=== PATIENT | female | born 1960 | race Caucasian/White ===

== ENCOUNTER → 2021-11-02 19:51 | Outpatient (CLI) | payer BC, SELFPAY ==
--- NOTE | 2021-11-07 16:17 | WPDSLEEPSTUD ---
Sleep Study Date of Study: 11/02/21 Ordering Provider: Derrek Bowens MD Interpreting Physician: Naya Aguillon MD Sleep Study Type: Split Polysomnogram Height: 1.59 m Weight: 136.985 kg Body Mass Index: 54.3 Neck Circumference (inches): 18 Fords: 11 Reason for Sleep Study Long history of obstructive sleep apnea, on CPAP 19 years with the same machine, increased symptoms Sleep History Aracely Piper is a 61 year old female with A history of obstructive sleep apnea on CPAP for the last 19 years. She is using the same machine. She now feels tired on waking and occasionally has headaches in the morning. She has difficulty falling asleep, she wakes up throughout the night and she is excessively sleepy in the daytime. She frequently awakens from sleep feeling short of breath. She occasionally awakens at night with heartburn, belching or coughing. She constantly snores loudly. She constantly has trouble sleep with a cold. She rarely wakes up gasping for breath at night. She occasionally has breathing problems at night observed by others. She frequently sweats excessively at night. She occasionally notices her heart pounding or beating irregularly at night. She rarely falls asleep during the day, rarely falls asleep involuntarily, never falls asleep while driving. She rarely has loss of muscle tone was strong emotion. She rarely has daytime difficulties due to excessive sleepiness. She does not feel paralyzed on waking or falling asleep and does not have vivid dreamlike scenes upon awakening falling asleep. She never feels afraid to go to sleep. She denies having nightmares. She occasionally remembers her dreams. She occasionally has racing thoughts. She rarely feels sad or depressed. She occasionally has anxiety, occasionally has muscular tension. She frequently notices parts of her body jerking. She frequently kicks at night. She occasionally has crawling and aching feelings in her legs. She frequently has leg pain at night. She occasionally has morning jaw pain. She occasionally grinds her teeth at night. She occasionally has bothered by pain during the day and occasionally awakened by pain at night. She constantly wakes up feeling stiff the morning with sore achy muscles. She frequently wakes up with pain in the neck and spine. She has memory problems, concentration difficulties, headaches palpitations fatigue and occasionally feels depressed. Normal bedtime is 8:00 p.m. falling asleep within 30 minutes typically waking once at night to be moved to the recliner and sometimes she will watch television. On average she stays awake 2 hours when she awakens during the night. She wakes the morning at 5:00 a.m.. Her weekend schedule is the same. She does not take naps in the afternoon or evening. A short nap 10 or 15 minutes long this sometimes refreshing. She feels better in the morning compared to other times of day. Habits: never smoked tobacco. Caffeine 3 glasses of tea per day. Rare alcohol use. No recreational drug use [facility] Past Medical History Medical History (Updated 11/07/21 @ 16:51 by Naya Aguillon MD) Asthma Fibromyalgia Heartburn Hypertension Kidney stones Obstructive sleep apnea Prediabetes Surgical History Surgical History (Updated 11/07/21 @ 16:50 by Naya Aguillon MD) History of cholecystectomy History of mandibular surgery 1994 orthognathic History of thyroidectomy Previous section x 3 Family History Family History (Updated 10/13/14 @ 09:12 by DOCTOR UNKNOWN) Mother Family history of chronic obstructive pulmonary disease Father Family history of pancreatic cancer Other Cerebrovascular accident Diabetes mellitus Family history of allergic disorder Hypertension Social History Social History Smoking status: Never smoker Alcohol intake: current Medications Medications: vitamin D3 a 1000 units daily multivitamin 1 daily [employer]
[2021-11-07 17:08] VITALS: BMI 54.3
== END ==
PROVIDERS: PCP Internal Medicine; Visit Provider Internal Medicine
DX: G47.33 Obstructive sleep apnea (adult) (pediatric) (principal)
CPT/HCPCS: 95811

== ENCOUNTER 2022-05-01 09:20 | Emergency (ER) | payer BC, SELFPAY ==
[2022-05-01 09:20] VITALS: BP 133/64; PULSE 76; RESP 18; TEMP 36.2; O2SAT 97
[2022-05-01 09:30] VITALS: BP 129/69; PULSE 76; RESP 16; O2SAT 96
--- NOTE | 2022-05-01 09:46 | ED.ALLEREA ---
HPI - Allergic Reaction General Chief complaint: Allergic Reaction Stated complaint: bee sting Time Seen by Provider: 05/01/22 09:46 Source: patient Mode of arrival: ambulatory History of Present Illness HPI narrative: 61-year-old female with a history of hypertension, fibromyalgia, obstructive sleep apnea on CPAP, pre diabetes presents to the ER after being stung by a bee 45 minutes ago. She has 2 sting dumas on the left arm and her left lateral thigh. No itching or no pain on the bite sites. The patient does not have any shortness of breath, throat swelling or tongue swelling. The patient complains of local swelling and redness around the sting site. She had a prior history of anaphylaxis to bee sting many years ago. Onset (ago): minute(s) ( 45 minutes ago) Exposure: insect bite Known history of allergy to: History of anaphylaxis to bee sting 20 years ago Severity: mild Treatment prior to arrival: none Previous Allergic Reaction History: none Related Data Allergies Allergy/AdvReac Type Severity Reaction Status Date / Time No Known Allergies Allergy Verified 05/01/22 09:38 Review of Systems Review of Systems: All systems reviewed & are unremarkable except as noted in HPI and below Constitutional: Constitutional: Reports as per HPI and Reports no additional constitutional complaints Eyes: Eyes: Reports as per HPI and Reports no additional eye complaints ENT: Reports system reviewed and no additional complaints, except as documented and Reports as per HPI Cardiovascular: Cardiovascular: Reports as per HPI and Reports no additional cardiovascular complaints Respiratory: Respiratory: Reports as per HPI and Reports no additional respiratory complaints Gastrointestinal: Gastrointestinal: Reports as per HPI and Reports no additional gastrointestinal complaints Genitourinary: Genitourinary: Reports no additional female genitourinary complaints and Reports as per HPI Musculoskeletal: Musculoskeletal: Reports no additional musculoskeletal complaints and Reports as per HPI Integumentary/Breasts: Skin/Breast: Reports system reviewed and no additional complaints, except as docu and Reports as per HPI Comments: redness and swelling around the bite site Neurologic: Reports system reviewed and no additional complaints, except as documented and Reports as per HPI Psychiatric: Psychiatric: Reports no additional psychiatric complaints and Reports as per HPI Endocrine: Endocrine: Reports no additional endocrine complaints and Reports as per HPI Hematologic/Lymphatic: Hematologic/Lymphatic: Reports no additional hematologic/lymphatic complaints and Reports as per HPI Allergic/Immunologic: Allergic/Immunologic: Reports no additional allergic/immunologic complaints and Reports as per HPI PMFSH Past Medical History Medical History Asthma Fibromyalgia Heartburn Hypertension Kidney stones Obstructive sleep apnea Prediabetes Surgical History Surgical History History of cholecystectomy History of mandibular surgery 1994 orthognathic History of thyroidectomy Previous section x 3 Family History Family History Mother Family history of chronic obstructive pulmonary disease Father Family history of pancreatic cancer Other Cerebrovascular accident Diabetes mellitus Family history of allergic disorder Hypertension Social History Social History Smoking status: Never smoker Alcohol intake: current Exam Const: General: healthy appearing and no acute distress Nutritional Appearance: well nourished Orientation/consciousness: patient oriented x3 Limitations: no limitations HENMT: Head: normal to inspection Ears: external ears normal, TM's normal bilaterally ( b/l tympanic
[2022-05-01 09:50] VITALS: BP 134/71; PULSE 69; RESP 16; O2SAT 96
[2022-05-01] MEDS: methylPREDNISolone SOD SUCC 125 MG VIAL 40 MG IM (10:09)
[2022-05-01 10:10] VITALS: BP 124/70; PULSE 68; RESP 16; TEMP 36.7; O2SAT 97
[2022-05-01 10:14] VITALS: BP 123/70; PULSE 73; RESP 16; O2SAT 96
== END 2022-05-01 10:17 | disposition home or self-care (01) ==
PROVIDERS: Emergency Provider Internal Medicine Critical Care Medicine; PCP Internal Medicine
DX: T63.441A Toxic effect of venom of bees, accidental (unintentional), initial encounter (principal)
CPT/HCPCS: 96372; 99283; J2930

== ENCOUNTER 2022-08-21 14:11 | Outpatient (CLI) | payer BC, SELFPAY ==
--- NOTE | ~2022-08-21 | XR_ITS ---
EXAMINATION: XR shoulder LT min 2V INDICATION: Left shoulder pain TECHNIQUE: Four views of the left shoulder are submitted. COMPARISON: None FINDINGS: Normal alignment. No fracture. There is moderate to severe osteoarthritis at the acromiocla vicular joint and moderate osteoarthritis of the glenohumeral joint. Soft tissues are unremarkable. IMPRESSION: 1. Osteoarthritis without acute osseous abnormality. Reviewed, dictated and finalized at location A.
== END 2022-08-21 14:12 | disposition home or self-care (01) ==
LOC: CHSIMG 14:11
PROVIDERS: PCP Internal Medicine; Visit Provider Internal Medicine
DX: M25.512 Pain in left shoulder (principal)
CPT/HCPCS: 73030

== ENCOUNTER 2023-10-19 15:39 | Outpatient (CLI) | payer MEDICARE, BC, SELFPAY ==
--- NOTE | ~2023-10-19 | XR_ITS ---
EXAMINATION: XR chest 2V DATE: 10/19/2023 16:14 INDICATION: Upper respiratory tract symptoms with productive cough and shortness of breath TECHNIQUE: PA and lateral views of the chest were obtained. COMPARISON: Chest radiograph dated 12/26/2016 FINDINGS: The lungs remain clear with no focal airspace opacities, pulmonary edema, pleural effusion or pneumot horax. The cardiomediastinal silhouette is normal. Mild thoracic spondylosis with bridging osteophyte s at multiple levels consistent with diffuse idiopathic skeletal hyperostosis (DISH). IMPRESSION: 1. No acute cardiopulmonary disease. Reviewed, dictated and finalized at location A. TOR DRIVER TEAMSTER
[2023-10-19 16:07] LABS: Basophils Absolute Auto 0.08 K/mm3 (0.00-0.10); Basophils Percent Auto 0.9 % (0.0-1.0); Eosinophils Absolute Auto 0.48 K/mm3 (0.02-0.50); Eosinophils Percent Auto 5.3 % (1.0-6.0); Hematocrit 44.3 % (35.0-42.0); Hemoglobin 14.2 g/dL (11.7-13.8); Immature Granulocyte Absolute 0.09 K/mm3 (0.00-0.00); Lymphocytes Absolute Auto 1.54 K/mm3 (1.10-4.50); Lymphocytes Percent Auto 16.9 % (18.0-42.0); Mean Corpuscular HGB Conc 32.1 g/dL (32.0-36.0); Mean Corpuscular Hemoglobin 30.8 pg (27.0-31.0); Mean Corpuscular Volume 96.1 fL (78.0-102.0); Mean Platelet Volume 8.3 fl (9.2-11.8); Monocytes Absolute Auto 1.09 K/mm3 (0.10-0.90); Neutrophils Absolute Auto 5.8 K/mm3 (1.7-7.2); Neutrophils Percent Auto 63.9 % (50.0-70.0); Platelet Count Result 309 K/mm3 (150-420); Red Blood Count 4.61 M/mm3 (4.20-5.40); Red Cell Distribution Width 12.9 % (11.6-14.4); White Blood Count 9.1 K/mm3 (4.8-10.8)
[2023-10-19 16:51] LABS: Alanine Aminotransferase 31 U/L (14-59); Albumin Level 3.3 g/dL (3.4-5.0); Alkaline Phosphatase 114 U/L (46-116); Anion Gap 2 mmol/L (8-16); Aspartate Amino Transferase 35 U/L (15-37); Bilirubin,Total 0.2 mg/dL (0.00-1.00); Blood Urea Nitrogen 22 mg/dL (7-18); Calcium 8.6 mg/dL (8.5-10.1); Carbon Dioxide 35 mmol/L (21-32); Chloride 98 mmol/L (98-108); Estimated Glomerular Filt Rate 47; Glucose 88 mg/dL (70-99); Osmolality Calculated 282 mOsm/kg (285-295); Potassium 4.3 mmol/L (3.5-5.1); Sodium 135 mmol/L (136-145); Thyroid Stimulating Hormone 0.21 uIU/mL (0.36-3.74)
== END 2023-10-19 15:40 | disposition home or self-care (01) ==
LOC: CHSLAB 15:46
PROVIDERS: PCP Internal Medicine; Visit Provider Internal Medicine
DX: J06.9 Acute upper respiratory infection, unspecified (principal); R05.9 Cough, unspecified; I10 Essential (primary) hypertension
CPT/HCPCS: 36415; 71046; 80053; 84443; 85025; 86140

== ENCOUNTER 2024-01-04 11:24 | Outpatient (CLI) | payer MEDICARE, SELFPAY ==
--- NOTE | ~2024-01-04 | CT_ITS ---
EXAMINATION: CTA chest PE protocol DATE: 01/04/2024 13:10 INDICATION: Mid to left-sided chest pain. TECHNIQUE: Computed tomography angiography (CTA) of the chest was performed with 100 mL Omnipaque-350 intravenous contrast timed to evaluate the pulmonary arteries. Coronal maximum intensity projection 3D-reconstructions were created by the technologist. Automated exposure control and iterative reconst ruction technique were employed. The dose-length product was 928.04 mGy-cm. COMPARISON: CT abdomen and pelvis 02/28/2016 FINDINGS: There is mild atelectasis bilaterally. A calcified right lung nodule and calcified right hi lar lymph nodes are consistent with old granulomatous disease. No pleural effusion. The heart size is normal. No pericardial effusion. There is no pulmonary embolus. There is mild thoracic spondylosis. IMPRESSION: 1. No pulmonary embolus. Reviewed, dictated and finalized at location A. ATER IMPRESSION: 1. No pulmonary embolus.
--- NOTE | ~2024-01-04 | XR_ITS ---
EXAMINATION: XR chest 2V DATE: 01/04/2024 11:57 INDICATION: Midsternal and left chest pain. TECHNIQUE: Frontal and lateral views of the chest were obtained. COMPARISON: Chest 2 views 10/19/2023 FINDINGS: There is no pneumonia, pleural effusion, or pneumothorax. The heart size is normal. IMPRESSION: 1. No acute cardiopulmonary disease. Reviewed, dictated and finalized at location A. RIAL WORKER
[2024-01-04 11:52] LABS: Basophils Absolute Auto 0.05 K/mm3 (0.00-0.10); Basophils Percent Auto 0.7 % (0.0-1.0); Eosinophils Absolute Auto 0.26 K/mm3 (0.02-0.50); Eosinophils Percent Auto 3.4 % (1.0-6.0); Hematocrit 44.8 % (35.0-42.0); Hemoglobin 15.1 g/dL (11.7-13.8); Immature Granulocyte Absolute 0.03 K/mm3 (0.00-0.00); Immature Granulocyte Percent A 0.4 % (0.0-0.0); Lymphocytes Absolute Auto 1.56 K/mm3 (1.10-4.50); Lymphocytes Percent Auto 20.7 % (18.0-42.0); Mean Corpuscular HGB Conc 33.7 g/dL (32.0-36.0); Mean Corpuscular Volume 94.9 fL (78.0-102.0); Mean Platelet Volume 8.9 fl (9.2-11.8); Monocytes Absolute Auto 0.85 K/mm3 (0.10-0.90); Monocytes Percent Auto 11.3 % (2.0-11.0); Neutrophils Absolute Auto 4.8 K/mm3 (1.7-7.2); Neutrophils Percent Auto 63.5 % (50.0-70.0); Platelet Count Result 286 K/mm3 (150-420); Red Blood Count 4.72 M/mm3 (4.20-5.40); Red Cell Distribution Width 12.5 % (11.6-14.4); White Blood Count 7.5 K/mm3 (4.8-10.8)
--- NOTE | 2024-01-04 12:00 | ECG_ITS ---
Measurements Intervals Rock Rate: 76 P: 45 UT: 179 QRS: 45 QRSD: 94 T: 56 QT: 383 QTc: 433 Interpretive Statements SINUS RHYTHM INCOMPLETE RIGHT BUNDLE BRANCH BLOCK DELAYED PRECORDIAL R/S TRANSITION BORDERLINE T WAVE ABNORMALITY- ANTERIOR LEADS BORDERLINE ECG NO PREVIOUS ECG AVAILABLE FOR COMPARISON Electronically Signed On 01-04-2024 12:17:12 SUPERINTENDENT TRACK by Daniel Bassett D.O.
[2024-01-04 12:05] LABS: D Dimer 0.79 mg/L (0.19-0.50)
[2024-01-04 12:17] LABS: Alanine Aminotransferase 40 U/L (14-59); Albumin Level 3.4 g/dL (3.4-5.0); Alkaline Phosphatase 79 U/L (46-116); Anion Gap 7 mmol/L (8-16); Aspartate Amino Transferase 25 U/L (15-37); Bilirubin,Total 0.3 mg/dL (0.00-1.00); Blood Urea Nitrogen 23 mg/dL (7-18); Calcium 8.8 mg/dL (8.5-10.1); Carbon Dioxide 31 mmol/L (21-32); Chloride 102 mmol/L (98-108); Creatine Kinase 56 U/L (26-192); Estimated Glomerular Filt Rate > 60; Glucose 113 mg/dL (70-99); Osmolality Calculated 294 mOsm/kg (285-295); Potassium 4.1 mmol/L (3.5-5.1); Sodium 140 mmol/L (136-145); Thyroid Stimulating Hormone 0.02 uIU/mL (0.36-3.74); Total Protein 7.8 g/dL (6.4-8.2); Troponin I 6.9 ng/L (0.00-60.4)
== END 2024-01-04 11:25 | disposition home or self-care (01) ==
PROVIDERS: PCP Internal Medicine; Visit Provider Internal Medicine
DX: R07.9 Chest pain, unspecified (principal); R79.1 Abnormal coagulation profile; I45.19 Other right bundle-branch block; G47.30 Sleep apnea, unspecified
CPT/HCPCS: 36415; 71046; 71275; 80053; 82550; 82553; 84443; 84484; 85025; 85380; 93005; Q9967

== ENCOUNTER 2024-07-04 14:47 | Outpatient (CLI) | payer MEDICARE, SELFPAY ==
--- NOTE | ~2024-07-04 | XR_ITS ---
EXAMINATION: XR foot LT min 3V DATE: 07/04/2024 15:26 INDICATION: Left foot pain post blunt trauma TECHNIQUE: Dorsoplantar, oblique and lateral views of the left foot were obtained. COMPARISON: None. FINDINGS: Bone alignment is normal. No fracture. Minimal to mild polyarticular osteoarthritis at multiple joint s in the mid and forefoot. Moderate-sized plantar calcaneal spur. Soft tissues are unremarkable. IMPRESSION: 1. No acute osseous abnormality. Reviewed, dictated and finalized at location A.
== END 2024-07-04 14:48 | disposition home or self-care (01) ==
LOC: CHSIMG 14:52
PROVIDERS: PCP Internal Medicine; Visit Provider Nurse Practitioner Family
DX: S99.922A Unspecified injury of left foot, initial encounter (principal)
CPT/HCPCS: 73630

== ENCOUNTER 2024-08-28 07:49 | Outpatient (CLI) | payer MEDICARE, SELFPAY ==
[2024-08-28 08:38] LABS: Hematocrit 42.8 % (37.0-47.0); Hemoglobin 13.8 g/dL (12.0-15.0)
[2024-08-28 08:41] LABS: Anion Gap 6 mmol/L (4-12); Blood Urea Nitrogen 25 mg/dL (7-17); Calcium 8.6 mg/dL (8.4-10.2); Carbon Dioxide 29 mmol/L (22-30); Chloride 101 mmol/L (98-107); Estimated Glomerular Filt Rate > 60; Glucose 95 mg/dL (65-110); Potassium 4.2 mmol/L (3.4-5.0); Sodium 136 mmol/L (137-145)
== END 2024-08-28 07:50 | disposition home or self-care (01) ==
PROVIDERS: Anesthesiology; PCP Internal Medicine; Visit Provider Urology
DX: N36.42 Intrinsic sphincter deficiency (ISD) (principal); D64.9 Anemia, unspecified; Z79.899 Other long term (current) drug therapy; Z01.818 Encounter for other preprocedural examination
CPT/HCPCS: 36415; 80048; 85014; 85018; 87086

== ENCOUNTER 2024-09-05 03:02 | Day surgery (SDC) | payer MEDICARE, SELFPAY ==
[2024-08-25 12:32] VITALS: BMI 47.6
--- NOTE | 2024-08-25 12:44 | PC.NURSE ---
Report to the Outpatient Waiting Room, entrance under the green pavilion located off [facility], at time __12:45pm__ on date 09/05/24 . Planned Procedure Time: __2:45pm .? Time changes happen often and if your time is changed the preop area will call you the afternoon before. - You and your visitor will be asked to self-screen and do not enter if you have any COVID symptoms. Please call surgeon if you need to reschedule. - A mask is optional within the hospital at this time. Patients may have clear liquids (water, carbonated beverages, clear teas, apple juice) until 3 hours prior to surgery with a maximum of 20 ounces. - No food from midnight until time of surgery and no smoking. (11:45am) Take only the following medications with a SIP of water on the morning of surgery: __ Levothyroxine, Duloxetine, Montelukast, Inhalers if needed _ DO NOT STOP ANY OF YOUR OTHER PRESCRIPTION MEDICATIONS PRIOR TO SURGERY EXCEPT THE FOLLOWING Medications to discontinue per physician Vitamins and supplements for 3 days prior to surgery per Anesthesia Date to take last dose____09/01/24 Please no make-up, nail ukrainian, hairspray, perfume, deodorant, or body powder the day of surgery.? No jewelry (including any body piercings) or valuables the day of surgery, leave them at home.? Please take a shower or bath the night before, or the morning of, surgery with an antibacterial soap.? Wear comfortable, loose fitting clothing.? - Jewelry must be removed prior to entering the operating room.? Rings and piercings that are not removed may be cut off. - The hospital will not accept responsibility for valuables.? - Please leave all valuables, including medications, at home the day of surgery. If you are going home after surgery, a licensed otr company truck driver must drive you home.? - NO public transportation without another adult if you receive anesthesia. - We recommend that an adult stay with you for 24 hours following discharge. - We also recommend that you do not drive, make important decision, drink alcoholic beverages, or take any drugs that were not prescribed by your health care provider for at least 24 hours after your discharge time. Follow any additional instructions given to you from your surgeon. Telephone instructions given to __patient and asked if any additional questions and then verbalized understanding. Patient advised to call surgeon office or pre surgery nurse liaison [phone] if any additional questions.
--- NOTE | 2024-08-30 16:20 | PM.IMHP ---
H&P: HPI History of Present Illness Date/Time: 08/30/24 16:20 Chief Complaint: ISD Narrative: ANASTASIA due to ISD. desires intervention Review of Systems Review of Systems: All systems reviewed & are unremarkable except as noted in HPI and below PMFSH Past Medical History Medical History Asthma Fibromyalgia Heartburn Hypertension Kidney stones Obstructive sleep apnea Prediabetes Surgical History Surgical History History of cholecystectomy History of mandibular surgery 1994 orthognathic History of thyroidectomy Previous section x 3 Family History Family History Mother Family history of chronic obstructive pulmonary disease Father Family history of pancreatic cancer Other Cerebrovascular accident Diabetes mellitus Family history of allergic disorder Hypertension Social History Social History Smoking status: Never smoker Alcohol intake: current Drinks per week: 1 Substance use: current Substance use type: marijuana Other substance usage details: Gummies on weekend to help sleep Living arrangements: with family Additional living arrangements comments: Spiritual care concerns: No Meds Home Medications and Allergies Home Medications Medication Instructions Recorded Confirmed Type allopurinol 100 mg tablet 100 mg PO BID 05/01/22 08/25/24 History fluticasone propionate 230 2 puff inhalation BID 05/01/22 08/25/24 History mcg-salmeterol 21 mcg/actuation HFA inhaler (Advair HFA) loratadine 10 mg tablet 10 mg PO DAILY 05/01/22 08/25/24 History montelukast 10 mg tablet 10 mg PO DAILY 05/01/22 08/25/24 History budesonide 0.5 mg/2 mL suspension 0.5 mg inhalation BID 08/25/24 08/25/24 History for nebulization duloxetine 30 mg capsule,delayed 30 mg PO DAILY 08/25/24 08/25/24 History release hydrochlorothiazide 25 mg tablet 25 mg PO DAILY 08/25/24 08/25/24 History iron 18 mg tablet 18 mg PO EVERY OTHER DAY 08/25/24 08/25/24 History levothyroxine 200 mcg tablet 200 mcg PO DAILY 08/25/24 08/25/24 History telmisartan 80 mg tablet 80 mg PO DAILY 08/25/24 08/25/24 History Allergies Allergy/AdvReac Type Severity Reaction Status Date / Time No Known Allergies Allergy Verified 08/25/24 12:22 Exam Narrative: no urethral mobility Assessment and Plan Assessment and plan (1) Intrinsic sphincter deficiency (ISD): Code(s): N36.42 - Intrinsic sphincter deficiency (ISD) Status: Acute Assessment and Plan: cysto/bulking agent
--- NOTE | 2024-09-05 04:50 | WPDHPUPDATE1 ---
History and Physical Update Update Date/Time: 09/05/24 04:50 History and Physical has been reviewed, including an updated exam of the patient. There are NO changes in the patient's condition. Risks, benefits, and alternatives have been discussed and questions answered. Patient agrees to proceed with procedure.
[2024-09-05 12:45] VITALS: BP 156/63; PULSE 97; RESP 14; TEMP 36.2; O2SAT 95
--- NOTE | 2024-09-05 14:03 | P.PNAN_ITS ---
Anes - Initial Pre Proc Eval Procedure: Operation Date: 09/05/24 14:45 Proposed Procedures p Cystoscopy, Injection Bulking Agent - Ruben Boyd MD Date/Time: 09/05/24 14:03 Surgeon: Ruben Boyd MD Pre Op Diagnosis: ID Patient Data Age: 64 Gender: F Height: 1.6 m Weight: 129.5 kg Last Vital Signs Temp 36.2 C L 09/05/24 12:45 Pulse 97 09/05/24 12:45 Resp 14 09/05/24 12:45 BP 156/63 H 09/05/24 12:45 Pulse Ox 95 09/05/24 12:45 O2 Del Method Room Air 09/05/24 12:45 Allergies Allergy/AdvReac Type Severity Reaction Status Date / Time No Known Allergies Allergy Verified 09/05/24 12:51 Home Medications Medication Instructions Recorded Confirmed Type allopurinol 100 mg tablet 100 mg PO BID 05/01/22 08/25/24 History fluticasone propionate 230 2 puff inhalation BID 05/01/22 08/25/24 History mcg-salmeterol 21 mcg/actuation HFA inhaler (Advair HFA) loratadine 10 mg tablet 10 mg PO DAILY 05/01/22 08/25/24 History montelukast 10 mg tablet 10 mg PO DAILY 05/01/22 09/05/24 History budesonide 0.5 mg/2 mL suspension 0.5 mg inhalation BID 08/25/24 08/25/24 History for nebulization duloxetine 30 mg capsule,delayed 30 mg PO DAILY 08/25/24 09/05/24 History release hydrochlorothiazide 25 mg tablet 25 mg PO DAILY 08/25/24 08/25/24 History iron 18 mg tablet 18 mg PO EVERY OTHER DAY 08/25/24 08/25/24 History levothyroxine 200 mcg tablet 200 mcg PO DAILY 08/25/24 09/05/24 History telmisartan 80 mg tablet 80 mg PO DAILY 08/25/24 08/25/24 History Patient hx anesthesia problems: none Family hx anesthesia problems: none Results Review: All pre-operative results and documents have been reviewed as part of the pre- operative evaluation. [facility] Past Medical History Medical History Asthma Fibromyalgia Heartburn Hypertension Kidney stones Obstructive sleep apnea Prediabetes Surgical History Surgical History History of cholecystectomy History of mandibular surgery 1994 orthognathic History of thyroidectomy Previous section x 3 Family History Family History Mother Family history of chronic obstructive pulmonary disease Father Family history of pancreatic cancer Other Cerebrovascular accident Diabetes mellitus Family history of allergic disorder Hypertension Social History Social History Smoking status: Never smoker Alcohol intake: current Drinks per week: 1 Substance use: current Substance use type: marijuana Other substance usage details: Gummies on weekend to help sleep Living arrangements: with family Additional living arrangements comments: Spiritual care concerns: No Anes - Eval Final PreProcedure Day of Procedure 09/05/24 14:03 Patient weight: super morbidly obese Heart: regular rate and rhythm Lungs: clear to auscultation Airway: Mallampati scale class II Neurological: alert and oriented Last oral intake: >/= 8 hours ASA classification: IV Emergent: no Anesthetic plan: proceed Anesthesia type and monitoring: general LMA and standard monitoring Results Review: All pre-operative results and documents have been reviewed as part of the pre- operative evaluation. Informed Consent: The patient's anesthetic plan and its attendant risks and benefits were discussed with the patient/family/POA. Questions were solicited and answers provided to the satisfaction of the patient/family/POA.
[2024-09-05] MEDS: ceFAZolin 3 GM/D5W 100 ML 100 ML IVPB (14:24)
[2024-09-05] MEDS: LIDOCAINE HCL 2% GEL UROJET 10 ML PKG MUCOUS MEM (14:35)
--- NOTE | 2024-09-05 14:43 | W.PM.PROC2 ---
Procedure Note - Detailed Date of Procedure 09/05/24 Pre-op Diagnosis Intrinsic sphincter deficiency Post-op Diagnosis Same Procedure Performed Cystoscopy with suburethral injection of implant material Surgeon Ruben Boyd MD Anesthesia MAC and Local (Uro jet) Indications Along with intrinsic sphincter deficiency. She is not a candidate for a sling due to anatomic concerns. She presents today for a bulking agent. She understands risks of bleeding, infection, lack of efficacy, need for repeat procedures, urinary retention requiring catheterization. She agrees to proceed Findings Uncomplicated bulking agent Description of Procedure She is correctly identified. Informed consent obtained. She had from the operating room. She was given monitored anesthesia care. She was given appropriate perioperative antibiotics. She was placed in dorsal lithotomy position. She was prepped and draped sterile fashion. Time-out performed. Uro jet was applied. Cystoscopy revealed a normal-appearing bladder with mild trabeculations. Ureteral orifices were normal. There was no foreign bodies or stones. Urethra was open consistent with intrinsic sphincter deficiency I chose a site in the mid urethra 2 cm distal to bladder neck. I injected bulking agent circumferentially. I used 2 total syringes. There was bulking effect coapted the urethra. Her bladder was left partially full. She was awakened transferred to PACU in stable condition. Implants Bulking agent Estimated Blood Loss 1 Drains No Packing No Pathology None sent Complications No immediate complications Condition Stable Disposition PACU
[2024-09-05 14:45] VITALS: BP 123/57; PULSE 81; RESP 16; O2SAT 99
[2024-09-05] MEDS: LACTATED RINGERS 1,000 ML 30 ML IV CONT (14:45)
[2024-09-05 15:15] VITALS: BP 135/70; PULSE 65; RESP 18; O2SAT 97
[2024-09-05 15:45] VITALS: BP 126/93; PULSE 67
== END 2024-09-05 15:50 | disposition home or self-care (01) ==
PROVIDERS: PCP Internal Medicine; Visit Provider Urology
PROC: 3E0K8GC Introduction of Other Therapeutic Substance into Genitourinary Tract, Via Natural or Artificial Opening Endoscopic (ICD-10-PCS; CPT 51715; principal; 2024-09-05 14:45)
DX: N36.42 Intrinsic sphincter deficiency (ISD) (principal); I10 Essential (primary) hypertension; R73.03 Prediabetes; J45.909 Unspecified asthma, uncomplicated; G47.33 Obstructive sleep apnea (adult) (pediatric); F12.90 Cannabis use, unspecified, uncomplicated; E66.01 Morbid (severe) obesity due to excess calories; Z68.43 Body mass index [BMI] 50.0-59.9, adult; Z79.51 Long term (current) use of inhaled steroids; Z98.890 Other specified postprocedural states; Z90.49 Acquired absence of other specified parts of digestive tract; Z87.442 Personal history of urinary calculi; Z80.0 Family history of malignant neoplasm of digestive organs; Z82.49 Family history of ischemic heart disease and other diseases of the circulatory system
CPT/HCPCS: 51715; J0690; J2003; J2250; J2704; J7120; L8606

== ENCOUNTER 2024-10-20 11:28 | Outpatient (CLI) | payer MEDICARE, SELFPAY ==
--- NOTE | ~2024-10-20 | XR_ITS ---
3 VIEWS LUMBAR SPINE Ordering provider: Derrek Bowens MD History: . FALL X2MO AGO,LBP RADIATES INTO RT HIP,RT SHOULDER PAIN-LROM . Comparison: None. FINDINGS: VERTEBRAL BODIES: Possible loss of height in L1 and L2 is not excluded. Minimal anterolisthesis at th e level of L2-L3. No visible fracture or subluxation. Degenerative changes of the spine. DISK SPACES: Narrowing of the disc L1-L2, L2-L3, L3-L4, L4-L5 and L5-S1. Multilevel facet joint disea se. SOFT TISSUES: Normal. Bilateral sacroiliacs. IMPRESSION: Possible slight loss of height in L1 and L2 is seen. MRI is advised Minimal retrolisthesis at the level of L2-L3. Multilevel degenerative disc disease Reviewed, dictated and finalized at location A. GER ENTERPRISE
--- NOTE | ~2024-10-20 | XR_ITS ---
Right Shoulder Technique: AP and scapular Y views were obtained. Clinical History: Pain Findings: No fracture or dislocation is seen. Osseous alignment is anatomic. The glenohumeral joint i s minimal degenerative change. There is advanced AC joint degenerative change. Soft tissues are unrem arkable. Impression: Degenerative changes, as above. Reviewed, dictated and finalized at location M. OSITE TECHNICIAN Impression: Degenerative changes, as above.
--- NOTE | ~2024-10-20 | XR_ITS ---
AP and lateral views of the right hip hip Clinical history: Pain Findings: No acute fracture or dislocation is seen. Osseous alignment is anatomic. Right hip joint is intact. Chronic heterotopic ossification present near the right inferior pubic ramus. Impression: No acute abnormality. Reviewed, dictated and finalized at [facility]. DESK SUPERVISOR Impression: No acute abnormality.
== END 2024-10-20 11:29 | disposition home or self-care (01) ==
PROVIDERS: PCP Internal Medicine; Visit Provider Internal Medicine
DX: M54.50 Low back pain, unspecified (principal); M51.369 Other intervertebral disc degeneration, lumbar region without mention of lumbar back pain or lower extremity pain; M43.16 Spondylolisthesis, lumbar region
CPT/HCPCS: 72100; 73030; 73502

== ENCOUNTER 2025-08-27 13:55 | Outpatient (CLI) | payer MEDICARE, SELFPAY ==
--- NOTE | ~2025-08-27 | MR_ITS ---
EXAMINATION: MR brain/brain stem wo con DATE: 08/27/2025 14:50 INDICATION: Headache. TECHNIQUE: Magnetic resonance imaging (MRI) of the brain and brainstem was performed without intravenous contrast. COMPARISON: None. FINDINGS: There are scattered areas of nonspecific increased T2-weighted signal intensity in the cerebral white matter and luly. There is no intracranial hemorrhage, acute infarction, or abnormal intracranial mass lesion. The ventricles are normal in size. There is mild mucosal thickening in the ethmoid sinuses. The orbits are normal. The mastoid air cells are normal. IMPRESSION: 1. Moderate nonspecific cerebral white matter disease and pontine disease, which likely represents chronic small vessel ischemic disease. Reviewed, dictated and finalized at location E. IMPRESSION: 1. Moderate nonspecific cerebral white matter disease and pontine disease, whic h likely represents chronic small vessel ischemic disease.
--- OUTSIDE RECORDS SUMMARY | 2025-08-27 14:56 | XMS_ITS | Clinical Summary ---
[facility] Organization [facility] Address [address] [place] [address] Care Team Providers Care Steep Tender Name Role Phone Derrek Bowens MD Primary Care Provider [phone] Allergies Active Allergy Reactions Criticality Noted Date Comments Clarithromycin Rash Medium 10/16/2016 Doxycycline Stomach upset Low 10/16/2016 Metronidazole Nausea only Low 02/13/2018 Progesterone Hives Medium 05/05/2021 Medications montelukast (SINGULAIR) 10 mg tabletIndicatio ns:Maintenance Therapy for Asthma Take 1 tablet (10 mg total) by mouth every morning Active loratadine (CLARITIN) 10 mg tabletIndicatio ns:Allergic Rhinitis Take 1 tablet (10 mg total) by mouth every morning Active albuterol HFA (PROVENTIL HFA,VENTOLIN HFA,PROAIR HFA) 90 mcg/actuation inhaler Inhale 2 puffs every 6 (six) hours as needed for shortness of breath Active azelastine (ASTELIN) 137 mcg (0.1 %) nasal sprayIndication s:Seasonal Allergic Rhinitis Administer 1 spray into each nostril as needed for allergies [address] (CYMBALTA) 30 mg capsuleIndicati ons:Neuropathic Pain Take 1 capsule (30 mg total) by mouth daily with lunch 1 Active fluticasone propion/salmete rol (ADVAIR DISKUS INHAL) Inhale 2 puffs as needed (SOB) Active ibuprofen (ADVIL,MOTRIN) 200 mg tab/capIndicati ons:Pain Take 2 tablet/capsule (400 mg total) by mouth as needed for pain Active acetaminophen (TYLENOL) 325 mg tablet Take 2 tablets (650 mg total) by mouth as needed for pain Active allopurinoL (ZYLOPRIM) 100 mg tabletIndicatio ns:prevention of acute gout attack Take 2 tablets (200 mg total) by mouth daily with lunch 2 Active eucalyptus oil/menthol/cam phor (VICKS VAPORUB TOP)Indications :congestion Apply 1 Dose topically nightly Active CALCIUM-VIT D3-MAG GLY-ZINC ORALIndications :supplemt Take 1 capsule by mouth every morning Active traMADoL (ULTRAM) 50 mg tabletIndicatio ns:Pain Take 1 tablet (50 mg total) by mouth as needed for pain Active lanolin/mineral oil (DRY SKIN BATH OIL TOP)Indications :dry skin Apply 1 application topically as needed Dotera oil Active levothyroxine (SYNTHROID) 200 mcg tablet Take 1 tablet (200 mcg total) by mouth daily 3 Active hydroCHLOROthia zide (HYDRODIURIL) 25 mg tablet Take 1 tablet (25 mg total) by mouth daily 3 Active telmisartan (MICARDIS) 80 mg tablet Take 1 tablet (80 mg total) by mouth daily 3 Active Active Problems Problem Noted Date Diagnosed Date Urinary incontinence 04/01/2024 Overview (04/01/2024): Only since hysterectomy 2 years ago. Some UV junction and apical descensus with Valsalva. We will refer to Urology/urogyn. Endometrial carcinoma 06/29/2021 Overview (06/29/2021): Added automatically from request for surgery [id number] Endometrial cancer 06/29/2021 Overview (06/29/2021): Added automatically from request for surgery [id number] Family history of uterine cancer 05/05/2021 Overview (05/05/2021): Mother Morbid obesity due to excess calories 10/20/2016 Pain in both lower extremities 10/20/2016 Varicose vein of leg 10/20/2016 Asthma 06/16/2013 Overview (02/07/2017): Asthma Hypertension 06/16/2013 Overview (02/09/2017): Hypertension, Unspecified Resolved Problems Problem Noted Date Diagnosed Date Resolved Date Complex atypical endometrial hyperplasia 10/26/2021 04/01/2024 Overview (10/26/2021): Added automatically from request for surgery [id number] PMB (postmenopausal bleeding) 05/05/2021 04/01/2024 Overview (05/05/2021): Pelvic sono ordered Immunizations Immunization Administration Dates Next Due Hep A, Adult 07/22/2007 Hep B Vaccine 06/19/2014 Influenza, Quadrivalent, Rec ombinant, Egg Free, Preservative Free, Intramuscular 08/10/2020 Influenza, Quadrivalent, Split, Intramuscular Influenza, Quadrivalent, Spl it, Preservative Free, Intramuscular 08/13/2019,08/28/2018 Influenza, Trivalent, IM (MDV) 07/13/2017,2011 Moderna SARS-CoV-2 Monovalent Vaccination (12+ Y RS) 12/10/2020,11/12/2020 Pneumococcal Conjugate PCV 13 08/27/2015 Pneumococcal Polysaccharide PPV23 07/18/2012 Td, adsorbed 10/12/2000 Tdap 07/22/2007 Surgical History Surgery Date Site/Laterality Comments ENDOMETRIAL BIOPSY 05/27/2021 SECTION GALLBLADDER SURGERY THYROIDECTOMY THYROIDECTOMY 11/05/2001 - 11/04/2002 SECTION 11/05/1976 - 11/04/1977 1978, 1979 COLONOSCOPY 11/05/2020 - 11/04/2021 MANDIBLE SURGERY Medical History Medical History Date Comments GERD (gastroesophageal reflux disease) MATT (obstructive sleep apnea) Asthma Skin cancer Arthritis Jeferson's thyroiditis PAD (peripheral artery disease) PONV (postoperative nausea and vomiting) w/ C-sections Fibromyalgia Family History Medical History Relation Name Comments Coronary artery disease Father Remedios nary artery disease; Diabetes Father Diabetes mellit us; Hyperlipidemia Father Hyperlipidemi a; Pancreatic cancer Father Cancer, pa ncreatic; Coronary artery disease Maternal Grandmother Coronary artery disease; Asthma Mother Asthma; COPD Mother COPD; Diabetes Mother Diabetes mellit us; Endometrial cancer Mother Cancer, e ndometrial; Thyroid disease Mother Thyroid dise ase; Diabetes Paternal Grandmother Diabete s mellitus; Hyperlipidemia Sister 1 Hyperlipidemi a; Kidney disease Sister 2 Renal disease ; Anesthesia problems Neg Hx Relation Name Status Comments Father Maternal Grandmother Mother Paternal Grandmother Sister 1 Sister 2 Social History Tobacco Use Types Packs/Day Years Used Date Smoking Tobacco: Never Smokeless Tobacco: Never Tobacco Cessation:Counseling Given: Not Answered Alcohol Use Standard Drinks/Week Comments No 0 (1 standard drink = 0.6 oz pur e alcohol) AUDIT-C Answer Date Recorded Q1: How often do you have a drink containing alc ohol? Monthly or less 01/12/2022 Q2: How many drinks containi ng alcohol do you have on a typical day when you are drinking? 1 or 2 01/12/2022 Q3: How often do you have si x or more drinks on one occasion? Never 01/12/2022 PHQ-2 Answer Date Recorded PHQ-2 Total Score (If total score is 3 or more points, staff should administer the PHQ-9) 0 10/07/2024 Comments No Sex and Gender Information Value Date Recorded Sex Assigned at Not on file Legal Sex Female 8:00 AM [employer]IVIL [employer] Gender Identity Not on file Sexual Orientation Not on file Obstetrics History Para Term AB IAB SAB Ectopic Multiple Livin g Live Births 3 3 3 0 0 0 0 0 0 3 3 Date Outcome GA Total Labor Labor/2nd/3rd Weight Sex Type Anes PTL Evonne A1 A5 Name Clin 01/05 Term 38w 0d 3.317 kg (7 lb 5 oz) F CS-Un spec Spinal N Living Complications:None 02/27 Term 38w 0d 2.608 kg (5 lb 12 oz) F CS-Un spec Spinal N Living Complications:None 10/16 Term 38w 0d 3.26 kg (7 lb 3 oz) M CS-Un spec Spinal N Living Complications:None Last Filed Vital Signs Vital Sign Reading Time Taken Comments Blood Pressure 150/88 04/07/2025 9:09 AM CDT Pulse 74 09/05/2023 9:53 AM CDT Temperature 37.2 C (98.9 F) 09/05/2023 9:53 AM CDT Respiratory Rate 16 09/05/2023 9:53 AM CDT Oxygen Saturation 96% 09/05/2023 9:53 AM CDT Inhaled Oxygen Concentration - - Weight 133.4 kg (294 lb) 04/07/2025 9:09 AM CDT Height 160 cm (5' 3) 04/07/2025 9:09 AM CDT Body Mass Index 52.08 04/07/2025 9:09 AM CDT Plan of Treatment Health Maintenance Due Date Last Done Comments Hepatitis C Screening 1960 Osteoporosis Screening-Bone Density Scan 1960 Zoster Vaccine (1 of 2) 2008 DTaP/Tdap/Td Vaccine (2 - Td or Tdap) 07/22/2017 07/22/2007, 10/12/2000 Pneumococcal vaccine 65+ (3 of 3 - PCV20 or PCV21) 08/27/2020 08/27/2015, 07/18/2012 Fall Risk Assessment 01/12/2023 01/12/2022 Well Visit 65+ 2023 Covid-19 Vaccine (4 - 2024-2 6 season) 2025 06/22/2021, 12/10/2020, 11/12/2020 Influenza Vaccine (#1) 2025 , 08/13/2019, 08/28/2018, Additional history exists Depression Screening 10/07/2025 10/07/2024 Breast Cancer Screening-Mammogram 02/05/2026 025 Colon Cancer Screening-Colonoscopy 07/20/2031 07/20/2021 Hepatitis B Screening Completed 06/19/2014 Cervical Cancer Screening Discontinued 05/27/2021 Procedures Procedure Name Priority Date/Time Associated Diagnosis Comments SCREENING MAMMOGRAM BILATERAL W MARVIN Schedule Routine, Read Routine (OP Routine) 02/05/2025 9:58 AM CDT COLONOSCOPY 07/20/2021 1:19 PM CDT PAP AND HIGH RISK HPV, REFLEX TO GENOTYPING Routine 05/27/2021 12:00 AM CDT Well woman exam from Last 3 Months or Most Recently Relevant to Health Maintenance Results * Screening Mammogram Bilateral W Marvin (02/05/2025 9:58 AM CDT) Anatomical Region Laterality Modality Breast Bilateral Mammography us Historical Provider MD LUKE MAMMO PROCEDURES Sharri l Result * COLONOSCOPY (07/20/2021 1:19 PM CDT) Anatomical Region Laterality Modality Other Narrative Procedure Note Praful Casillas MD - 07/20/2021 1:19 PM CDT ENDOSCOPY LAB Patient Name: Aracely Piper Procedure Date: 07/20/2021 1:19 PM Date of : 1960 Admit Type: Outpatient Age: 61 Gender: Female Attending MD: Praful Casillas M.D. Room: [facility] ENDOSCOPY ROOM 02 Note Status: Finalized Procedure: Colonoscopy Indications: Screening for colorectal malignant neoplasm, Last colonoscopy: 2007, Personal history of malignant uterine neoplasm Providers: Praful Casillas M.D. Referring MD: Isidro Boyle M.D. Medicines: Monitored Anesthesia Care Complications: No immediate complications. Estimated Blood Loss: Estimated blood loss was minimal. Procedure: Pre-Anesthesia Assessment: - Immediately prior to administration ofmedications, the patient was re-assessed for adequacy to receive sedatives. - Sedation was administered by an anesthesia professional. The sedation level attained wasmoderate. - The heart rate, respiratory rate, oxygen saturations, blood pressure, adequacy of pulmonary ventilation, and response to care were monitored throughout the procedure. - The physical status of the patient wasre-assessed after the procedure. The benefits, risks and alternatives of theprocedure and sedation were discussed and informed consentwas obtained. All questions were answered. Please referto the signed informed consent document in the medical record. The scope was passed under direct vision.The [id number] was introduced through the anusand advanced to the terminal ileum, with identificationof the appendiceal orifice and IC valve. Thecolonoscopy was somewhat difficult due to a redundant colon and significant looping. Successful completion of the procedure was aided by straightening and shortening the scope to obtain bowel loop reduction, usingscope torsion and applying abdominal pressure withcolowrap. The quality of the bowel preparation was evaluated using the BBPS (Monroe Bowel Preparation Scale)with scores of: Right Colon = 2 (minor amount ofresidual staining, small fragments of stool and/or opaque liquid, but mucosa seen well), Transverse Colon = 3 (entire mucosa seen well with no residual staining, small fragments of stool or opaque liquid) and Left Colon = 3 (entire mucosa seen well with no residual staining, small fragments of stool or opaqueliquid). The total BBPS score equals 8. The quality of the bowel preparation was good. Bowel prep was administered using a split dose. Findings: Hemorrhoids were found on perianal exam. The digital rectal exam was normal. Pertinent negatives include no palpable rectal lesions. A 2 mm polyp was found in the cecum. The polyp was sessile. The polyp was removed with a jumbo cold forceps. Resection and retrieval were complete. A single small angiodysplastic lesion without bleeding was found inthe ascending colon. Two sessile polyps were found in the descending colon and distal transverse colon. The polyps were 3 to 4 mm in size. These polypswere removed with a jumbo cold forceps. Resection and retrieval werecomplete. A single small-mouthed diverticulum was found in the descendingcolon. A 3 mm polyp was found in the sigmoid colon. The polyp was sessile.The polyp was removed with a jumbo cold forceps. Resection and retrieval were complete. Non-bleeding internal hemorrhoids were found during endoscopy. The hemorrhoids were small. The exam was otherwise without abnormality. Impression: - Hemorrhoids found on perianal exam. - One 2 mm polyp in the cecum, removed with a jumbo cold forceps. Resected and retrieved. - A single non-bleeding colonic angiodysplasticlesion. - Two 3 to 4 mm polyps in the descending colon andin the distal transverse colon, removed with a jumbocold forceps. Resected and retrieved. - Diverticulosis in the descending colon. - One 3 mm polyp in the sigmoid colon, removed witha jumbo cold forceps. Resected and retrieved. - Non-bleeding internal hemorrhoids. - The examination was otherwise normal. Recommendation: - Discharge patient to home. - Advance diet as tolerated and high fiber diet indefinitely. - Continue present medications. - Await pathology results. - Repeat colonoscopy date to be determined after pending pathology results are reviewed for surveillance based on pathology results. - Return to referring physician as previously scheduled. - For polyp and cancer prevention: Consider daily aspirin if OK with primary care provider; Calcium, folate, and vitamin D; healthy diet low inprocessed and red meats, exercise regularly, maintain healthy weight. See [facility] Cancer website for moreprevention tips. - Contact Information: During normal business hours (8AM-4PM) - Pleasecall the Nurse Coordinator: [phone]. fisher scallop physician after hours, weekends andholidays: [phone] and asked for the [place]-Rectalphysician responder. - A polyp or polyps were removed during your colonoscopy today. After the pathology result ofthe polyp(s) is reviewed, the doctor who performedyour colonoscopy will recommend follow-up colonoscopy to you based on current guidelines by gastroenterology societies: - If only small hyperplastic polyps from the rectumor sigmoid were removed, repeat the colonoscopy in 10 years. - If 1 or 2 polyps less than 1 cm in size are adenomas, repeat the colonoscopy in 5 years. - If 3 or more polyps are adenomas, repeat the colonoscopy in 3 years. - If there are 10 or more adenomas, repeat the colonoscopy in 1 year. - If any polyp is 10 mm or greater in size, has villous histology or high grade dysplasia,repeat the colonoscopy in 3 years. - If a polyp greater than 2 cm was removed with a piecemeal technique, repeat the colonoscopy in 6 months to be certain that there is no residualpolyp. - Sessile serrated polyps are treated like adenomas for surveillance purposes. Electronically signed by Praful Casillas MD Praful Casillas M.D. 07/20/2021 2:11:11 PM Number of Addenda: 0 Note Initiated On: 07/20/2021 1:19 PM Praful Casillas MD ENDOSCOPY PROCEDURES Final R esult * Pap and High Risk HPV, reflex to Genotyping (05/27/2021 12:00 AM CDT) CLINICAL INFORMATION: [facility] Comment:ANNUAL SCREENING LMP [facility] Comment:POST SIS Previous Pap [facility] Comment:INFORMATION NOT PROV IDED Prev. Bx [facility] Comment:INFORMATION NOT PROV IDED SOURCE: [facility] Comment:Cervix, Endocervix Pap, specimen adequacy [facility] Comment: Satisfactory for evaluation. Endocervical/transformation zone component present. HPV interp [facility] Comment:Negative for intraep ithelial lesion or malignancy. Aircraft Worker [facility] Comment: ABC, CT(ASCP) CT screening location: [place] [address] [address] [place] [address] Review lowerator operator [facility] Comment: KMY, CT(ASCP) CT screening location: [place] [address] [address] [place] [address] Comment [facility] Comment: EXPLANATORY NOTE: The Pap is a screening test for cervical cancer. It is not a diagnostic test and is subject to false negative and false positive results. It is most reliable when a satisfactory sample, regularly obtained, is submitted with relevant clinical findings and history, and when the Pap result is evaluated along with historic and current clinical information. Human papillomavirus DNA, High Risk E6/E7 Not Detected NOT DETECTED [facility] [facility] Comment: Not Detected High Risk HPV types (16,18,31,33,35,39,45,51,52, 56,58,59,66,68) were not detected. Other HPV types which cause anogenital lesions may be present. The significance of the other types of HPV in malignant processes has not been established. Methodology: Real Time PCR Swab 05/27/2021 05/31/2021 1:0 5 PM CDT Narrative [facility] - 06/02/2021 12:07 PM CDT FASTING: UNKNOWN Kraig Morillo MD LAB CYTOLOGY ORDERABLES Fi nal Result [facility] [address] [place] [address] [employer] [facility] [address] [facility] [place] [address] from Last 3 Months or Most Recently Relevant to Health Maintenance Insurance MEDICARE [facility] MEDICARE SUPPLEMENT MEDICARE [facility] Care Teams Steep Tender Relationship Specialty Start Date End Date Derrek Bowens MD PCP - General 05/19/14
== END 2025-08-27 13:56 | disposition home or self-care (01) ==
LOC: CHSIMG 13:57
PROVIDERS: PCP Internal Medicine; Visit Provider Internal Medicine
DX: R51.9 Headache, unspecified (principal); R90.82 White matter disease, unspecified
CPT/HCPCS: 70551